=== PATIENT | male | born 1960 ===

== ENCOUNTER 2023-05-29 15:14 | Emergency (ER) | payer MEDICAID, SELFPAY ==
[2023-05-29 15:18] VITALS: BP 108/75; PULSE 91; RESP 16; O2SAT 98
--- NOTE | 2023-05-29 15:43 | ED.GENADUL_ITS ---
HPI General Date/Time Provider Initiated Documentation: 05/29/23 15:21 . HPI Narrative: 63-year-old male history of remote abdominal trauma without surgical intervention, chronic umbilical hernia, presents endorsing abdominal discomfort fullness epigastric discomfort mild nausea, endorses normal bowel movement however difficulty urinating over the last several days, feels as if his testicles are more swollen Related Data Home Medications Medication Instructions Recorded Confirmed bupropion HCl 150 mg tablet,12 hr 150 mg PO BID 05/29/23 05/29/23 sustained-release cyclobenzaprine 10 mg tablet 10 mg PO TID 05/29/23 05/29/23 gabapentin 600 mg tablet 600 mg PO TID 05/29/23 05/29/23 ibuprofen 200 mg tablet (IBU-200) 200 mg PO Q8H 05/29/23 05/29/23 levothyroxine 75 mcg tablet 75 mcg PO DAILY 05/29/23 05/29/23 (Euthyrox) loratadine 10 mg tablet 10 mg PO DAILY 05/29/23 05/29/23 (Allerclear) nicotine 14 mg/24 hr daily 1 patch transdermal DAILY 05/29/23 05/29/23 transdermal patch (Nicoderm CQ) omeprazole 20 mg capsule,delayed 20 mg PO DAILY 05/29/23 05/29/23 release sildenafil 100 mg tablet 100 mg PO DAILY PRN 05/29/23 05/29/23 tamsulosin 0.4 mg capsule 0.4 mg PO DAILY 7 days #7 caps 05/29/23 tamsulosin 0.4 mg capsule (Flomax) 0.4 mg PO DAILY 05/29/23 05/29/23 Previous Rx's Medication Instructions Recorded tamsulosin 0.4 mg capsule 0.4 mg PO DAILY 7 days #7 caps 05/29/23 Allergies Allergy/AdvReac Type Severity Reaction Status Date / Time No Known Allergies Allergy Unverified 05/29/23 15:22 General Stated Complaint: Abd Prob JOHN: 3 Review of Systems Narrative: Review of Systems Constitutional: negative Eyes: negative ENT: negative Cardiovascular: negative Respiratory: negative Gastrointestinal: Abdominal pain : Testicular fullness Musculoskeletal: negative Skin: negative Neurologic: negative Psych: negative Exam Narrative Exam Narrative: Physical Examination General: alert, awake, cooperative, resting comfortably, no acute distress HEENT: normocephalic, atraumatic; PERRL, EOM intact, conjunctiva normal; no nasal discharge; moist mucous membranes, oral and pharyngeal mucosa normal, tolerating secretions Neck: supple, trachea midline; full ROM Chest: normal to inspection Respiratory: normal respiratory effort, speaking in full sentences, clear to auscultation, no wheezing, rales or rhonchi Cardiac: regular rate, regular rhythm, S1S2 intact, no murmurs rubs or gallops GI: abdomen soft, tender in epigastrium, mildly distended, soft umbilical hernia easily reducible : Normal external genitalia, testes nontender, normal texture, normal lie normal rugae no penile discharge or rash no inguinal hernias appreciated Skin: no lesions, rashes or trauma appreciated Neuro: AAOx3, normal speech, moving all extremities Psych: Appropriate mood and affect Course Vital Signs Vital signs: Vital Signs Pulse 91 H 05/29/23 15:18 Respiratory Rate 16 05/29/23 15:18 Blood Pressure 108/75 05/29/23 15:18 Pulse Oximetry 98 05/29/23 15:18 Pulse 91 H 05/29/23 15:18 Respiratory Rate 16 05/29/23 15:18 Blood Pressure 108/75 05/29/23 15:18 Blood Pressure Position Sitting 05/29/23 15:18 Pulse Oximetry 98 05/29/23 15:18 Oxygen Delivery Method Room Air 05/29/23 15:18 Oxygen Flow Rate 0 05/29/23 15:18 Pain Level 10 05/29/23 15:18 Medical Decision Making 63-year-old male history of remote abdominal trauma, chronic umbilical hernia presents with epigastric abdominal discomfort abdominal distention mild nausea, normal bowel movements, difficulty urinating over last couple days sensation of testicular fullness and reported discoloration of penis and testicles, normal-a ppearing external genitalia without rash redness or discoloration, no penile discharge, normal nonpainful testicles with normal rugae and lie. Tender in the epigastrium with mild distention on examination, soft umbilical hernia, no evidence of inguinal hernias. Patient nontoxic well-hydrated, hemodynamically stable however given examination must consider early bowel obstruction versus internal hernia versus incarcerated local hernia versus abdominal or pelvic mass lower suspicion for UTI orchitis or epididymitis, no evidence of testicular torsion no evidence of testicular mass on examination, must also consider BPH. Screening labs imaging fluids analgesia anti-inflammatory. Close reassessment 17: 49 resting comfortably no acute distress. Able to urinate spontaneously without issue no evidence of UTI and no hematuria. Evidence of enlarged prostate on CT. Umbilical hernia without evidence of incarceration or bowel obstruction. Will start patient on Flomax and have him follow-up with urology. Home care instructions return precautions given Quality:SDOH Health Related Social Needs: No Data to Display PFSH All Active Problems (Updated 05/29/23 @ 17:50 by Hari Braun MD) Abdominal pain (Acute) Social History Smoking/Tobacco Use Status: Never Smoking risk assessment performed?: Yes Alcohol Intake: never Do you feel safe at home: Yes Do you feel safe in your relationship?: Yes Discharge Plan Disposition Patient Disposition: Home Condition: Improving Discharge Details Clinical Impression: Abdominal pain Primary Care Provider: Yoana Galdamez ED Provider: Hari Braun Home Meds and New Rx's Prescriptions: New tamsulosin 0.4 mg capsule 0.4 mg PO DAILY 7 Days Qty: 7 0RF No Action bupropion HCl 150 mg tablet sustained-release 12 hr 150 mg PO BID cyclobenzaprine 10 mg tablet 10 mg PO TID gabapentin 600 mg tablet 600 mg PO TID ibuprofen [IBU-200] 200 mg tablet 200 mg PO Q8H levothyroxine [Euthyrox] 75 mcg tablet 75 mcg PO DAILY loratadine [Allerclear] 10 mg tablet 10 mg PO DAILY nicotine [Nicoderm CQ] 14 mg/24 hr patch 24 hour 1 patch transdermal DAILY omeprazole 20 mg capsule,delayed release(DR/EC) 20 mg PO DAILY sildenafil 100 mg tablet 100 mg PO DAILY PRN Rx Instructions: administer 30 minutes to 4 hours before activity tamsulosin [Flomax] 0.4 mg capsule 0.4 mg PO DAILY Discharge Instructions Instructions: Abdominal Pain (ED) Additional Instructions: Please follow-up with urology as scheduled. Please return to the emergency department for any worsening symptoms.
[2023-05-29 15:46] LABS: Abs Immature Grans 0.03 10^3/uL (0.0-0.06); Absolute Basophil Count 0.04 10^3/uL (0.0-0.2); Absolute Eosinophil Count 0.14 10^3/uL (0.0-0.7); Absolute Lymphocyte Count 1.73 10^3/uL (1.2-3.4); Absolute Monocyte Count 0.48 10^3/uL (0.1-0.8); Absolute Neutrophil Count 4.68 10^3/uL (1.2-6.7); Basophils % 0.6; HCT 38.8 % (40.0-50.0); HGB 12.7 g/dL (13.5-17.5); Immature Grans % 0.4; Lymphocytes % 24.4; MCH 30.4 pg (27.0-33.0); MCHC 32.7 % (32.0-36.0); MCV 93 fL (80-95); MPV 8.4 fL (8.0-11.0); Monocytes % 6.8; Neutrophils % 65.8; Platelet Count 275 10^3/uL (130-400); RBC 4.18 10^6/uL (4.36-5.78); RDW 12.6 % (11.8-14.1); RDW-SD 43.1 fL
[2023-05-29] MEDS: Normal Saline 1,000 ML 1000 ML IV (15:47)
[2023-05-29] MEDS: Ketorolac 15 MG/ML VIAL IVP (15:48)
[2023-05-29] MEDS: Ondansetron 4 MG/2 ML VIAL IVP (15:48)
[2023-05-29 16:00] LABS: INR 1.1 (0.9-1.1); PTT Activated 23.3 sec (23.6-32.8); Prothrombin Time 10.6 sec (9.1-11.1)
[2023-05-29 16:01] LABS: ALT 16 U/L (16-63); AST 11 U/L (15-37); Alkaline Phosphatase 91 U/L (46-116); Anion Gap 11.9 mmol/L (3-11); BUN 30 mg/dL (7-18); Bilirubin, Total 0.3 mg/dL (0.2-1.0); CO2 27.1 mmol/L (21.0-32.0); CREATININE 1.1 mg/dL (0.70-1.30); Calcium 8.7 mg/dL (8.5-10.1); Chloride 104 mmol/L (98-107); Estimated GFR 76.37 (mL/min/1.73m2); Glucose 92 mg/dL (74-106); Potassium 3.4 mmol/L (3.5-5.1); Sodium 143 mmol/L (136-145); Total Protein 7.4 g/dL (6.4-8.2)
[2023-05-29] MEDS: Normal Saline - Diluent 50 ML VIAL IJ (16:59)
[2023-05-29] MEDS: Omnipaque 350 MG/ML 100 ML BTL IJ (17:00)
--- NOTE | 2023-05-29 17:01 | DI.CT_ITS ---
Exam(s) CT ABDOMEN PELVIS W EXAM: CT ABDOMEN PELVIS W CLINICAL HISTORY: abd pain, distension, umb hernia, urine retention. TECHNIQUE: Imaging Protocol: Axial computed tomography images with coronal and sagittal reformatted images were created and reviewed CONTRAST MATERIAL: Intravenous: Omnipaque-350 100cc Oral: None COMPARISON: No exams were available for comparison FINDINGS: VISUALIZED LUNG BASES: There is some infiltrate evident in the posterior basal segment of the right l ower lobe. Minimal increased markings same location in the left lung. No pleural effusions.. ABDOMEN: There is no ascites. LIVER: There are no focal hepatic lesions evident. No dilated intrahepatic ducts. GALLBLADDER/BILIARY: No obvious gallbladder pathology. CBD is not dilated. PANCREAS: No evidence of pancreatic mass nor dilatation of the pancreatic duct. SPLEEN: Spleen is not enlarged. No obvious intrasplenic lesions. Splenic and portal veins are paten t. ADRENALS: There are no significant adrenal masses. KIDNEYS:No cysts evident. No solid renal masses. No calculi nor hydronephrosis.. ABDOMINAL AORTA: Abdominal aorta is not enlarged. LYMPH NODES:There is no retroperitoneal nor paraaortic adenopathy. ABDOMINAL WALL: No evidence of significant anterior abdominal wall nor inguinal hernia. GI: There is a midline fat containing umbilical hernia. Does not contain bowel loops. PELVIS: GI: No evidence of appendicitis.No evidence of sigmoid diverticulitis. LYMPH NODES: There is no intrapelvic nor inguinal adenopathy. REPRODUCTIVE: Prostate size normal. There is a TURP defect in the prostatic urethra urinary bladder is not distended. No radiopaque calculi nor masses in the bladder. URINARY BLADDER: No calculi nor obvious masses evident OSSEOUS: Left hip prosthesis. No osseous lesions. Slight loss of height of superior endplates of L1, L2, L3, and L5 vertebral bodies. Appear nonacute. No listhesis. IMPRESSION: 1. There is a midline fat only containing umbilical hernia. This does not contain bowel loops and th ere is no evidence of bowel obstruction, free air, nor abscess. 2. There is mild infiltrate in the right lower lobe posterior basal segment. There is no PE. 3. Prostate TURP defect. No bladder distension. 4. Multiple nonacute compression fractures in the lumbar spine. Left hip prosthesis. Called by myself to ER physician RADIATION DOSE DELIVERED: 588.63mGy.cm Total DLP DATA REPOSITORY: All CT scans at this facility are submitted to the National Radiology Data Registry (NRDR) Dose Index Registry (DIR) with the [employer] (ACR). RADIATION OPTIMIZATION: All CT scans at this facility use at least one of these dose optimization te chniques: automated exposure control; mA and/or kV adjustment per patient size (includes targeted exa ms where dose is matched to clinical indication); or iterative reconstruction.
[2023-05-29 17:21] LABS: Bilirubin Negative (Negative); Blood Negative (Negative); Clarity Clear (Clear); Glucose Negative (Negative); Ketones Negative (Negative); Leukocyte Esterase Negative (Negative); Nitrite Negative (Negative); Urobilinogen 0.2 mg/dL (Up to 0.2)
--- NOTE | 2023-05-29 17:56 | NUR.NOTE ---
Referral faxed to [facility] for urinary retention, in 1 week. Nursing Note:
[2023-05-29 17:59] VITALS: BP 120/74; PULSE 84; RESP 16; O2SAT 96
== END 2023-05-29 18:01 | disposition home or self-care (01) ==
PROVIDERS: Emergency Provider Emergency Medicine; PCP Physician Assistant Medical
DX: R10.9 Unspecified abdominal pain (principal)
CPT/HCPCS: 36415; 80053; 96361; 96374; 96375; 99285; 74177; 81003; 85025; 85610; 85730; 99284; J1885; J2405; J3490

== ENCOUNTER 2023-05-30 14:31 | Emergency (ER) | payer MEDICAID, SELFPAY ==
[2023-05-30 14:39] VITALS: BP 117/58; PULSE 78; RESP 20; TEMP 36.8; O2SAT 98
--- NOTE | 2023-05-30 15:19 | ED.GENADUL_ITS ---
HPI General Mode of arrival: ambulatory . Date/Time Provider Initiated Documentation: 05/30/23 14:45 . Limitations to Documentation: no limitations . Information obtained by: patient . HPI Narrative: 63-year-old male with history of remote abdominal trauma, chronic umbilical hernia, here with abdominal discomfort and difficulty urinating over the last several days. Patient has been seen at 2 outside hospital emergency departments over the past week and our ED yesterday. He had diagnostic workup here yesterday including abdominal CT that revealed midline fat only containing umbilical hernia and prostate with TURP defect and no bladder distention. He was discharged yesterday advised to follow-up with urology but has not yet scheduled appointment. Patient returns with continued pain. He notes pain is improved when he is lying flat and worse upright. He has been able to urinate today. He denies rectal pain. Related Data Home Medications Medication Instructions Recorded Confirmed bupropion HCl 150 mg tablet,12 hr 150 mg PO BID 05/29/23 05/30/23 sustained-release cyclobenzaprine 10 mg tablet 10 mg PO TID 05/29/23 05/30/23 gabapentin 600 mg tablet 600 mg PO TID 05/29/23 05/30/23 ibuprofen 200 mg tablet (IBU-200) 200 mg PO Q8H 05/29/23 05/30/23 levothyroxine 75 mcg tablet 75 mcg PO DAILY 05/29/23 05/30/23 (Euthyrox) loratadine 10 mg tablet 10 mg PO DAILY 05/29/23 05/30/23 (Allerclear) nicotine 14 mg/24 hr daily 1 patch transdermal DAILY 05/29/23 05/30/23 transdermal patch (Nicoderm CQ) omeprazole 20 mg capsule,delayed 20 mg PO DAILY 05/29/23 05/30/23 release sildenafil 100 mg tablet 100 mg PO DAILY PRN 05/29/23 05/30/23 tamsulosin 0.4 mg capsule 0.4 mg PO DAILY 7 days #7 caps 05/29/23 05/30/23 tamsulosin 0.4 mg capsule (Flomax) 0.4 mg PO DAILY 05/29/23 05/30/23 Previous Rx's Medication Instructions Recorded tamsulosin 0.4 mg capsule 0.4 mg PO DAILY 7 days #7 caps 05/29/23 Allergies Allergy/AdvReac Type Severity Reaction Status Date / Time No Known Allergies Allergy Unverified 05/30/23 14:45 General Stated Complaint: Abd Prob JOHN: 3 Exam Const General: cooperative and no acute distress HENMT Mouth: moist mucous membranes Eyes Conjunctivae: normal conjunctivae Sclera: normal sclerae Neck Neck: supple Resp Auscultation: clear to auscultation bilaterally, no rales, no rhonchi and no wheezes Cardio Rate: regular rate and not tachycardic Rhythm: regular rhythm GI Inspection: no abdominal wall ecchymosis Palpation: soft, not firm, guarding in the RLQ and in the LUQ, no masses, not rigid and tender in the epigastrum, in the LLQ and in the RLQ Skin General skin exam: no rashes or lesions noted Neuro General: patient alert, patient awake and tone normal Extrem General: no edema Psych Appearance: grossly normal Mental Status: mental status grossly normal Course Vital Signs Vital signs: Vital Signs Temperature 36.8 C 05/30/23 14:39 Pulse 78 05/30/23 14:39 Respiratory Rate 20 05/30/23 14:39 Blood Pressure 117/58 L 05/30/23 14:39 Pulse Oximetry 98 05/30/23 14:39 Temperature 36.8 C 05/30/23 14:39 Pulse 78 05/30/23 14:39 Respiratory Rate 20 05/30/23 14:39 Respiratory Effort Normal 05/30/23 14:50 Blood Pressure 117/58 L 05/30/23 14:39 Pulse Oximetry 98 05/30/23 14:39 Oxygen Delivery Method Room Air 05/30/23 14:39 Oxygen Flow Rate 0 05/30/23 14:39 Pain Level 10 05/30/23 14:39 Medical Decision Making 1535 -- 63-year-old male history of remote abdominal trauma, chronic umbilical hernia presents with epigastric abdominal discomfort abdominal distention mild nausea, normal bowel movements, difficulty urinating over last couple days sensation of testicular fullness. Patient was seen here in the emergency room yesterday with same presentation had CT imaging, diagnostic labs and urinalysis performed. There was concern for evidence of enlarged prostate on CT patient was started on Flomax and there was plan to have him follow-up with urology. He returns today with persistent discomfort. Patient has abdominal tenderness with guarding. Soft umbilical hernia without signs of incarceration. General exam reveals tender bilateral testicles with no other inflammatory changes. No discoloration or penile discharge. Normal testicular lie. Patient was seen here in the emergency room yesterday with same presentation had CT imaging, diagnostic labs and urinalysis performed. There was concern for evidence of enlarged prostate on CT patient was started on Flomax and there was plan to have him follow-up with urology. He returns today with persistent discomfort. Postvoid bladder scan performed and 0 residual. Plan to obtain testicular ultrasound. -- Testicular ultrasound was interpreted by Dr. Rangel: Small hydrocele and spermatocele. 1950 --CT of the abdomen pelvis was interpreted by radiology: Normal CT Angiogram of the Abdomen. No acute abnormality is seen in the abdomen or pelvis. Labs reviewed and nondiagnostic. Urinalysis nondiagnostic. Patient has remained stable. All results were discussed with the patient. Plan for discharge with close outpatient follow-up. Disposition decision was made weighing the risks and benefits of hospitalization versus outpatient treatment, the risk for further decompensation, and the patient's wishes. The patient was stable and requested discharge. Prior to discharge, my usual and customary return precautions were reviewed with the patient - this included follow-up instructions and reason to return to the emergency department if condition worsens, does not improve as expected, or other new concerns arise. Lab Data Lab results reviewed: Yes I reviewed the patient's lab results. Labs: Laboratory Tests Range/Units 05/30/23 05/30/23 05/30/23 15:06 15:25 15:45 WBC (4.4-10.8) 10^3/uL 6.41 RBC (4.36-5.78) 10^6/uL 3.84 L Hgb (13.5-17.5) g/dL 11.8 L Hct (40.0-50.0) % 35.3 L MCV (80-95) fL 92 MCH (27.0-33.0) pg 30.7 MCHC (32.0-36.0) % 33.4 RDW (11.8-14.1) % 12.6 Plt Count (130-400) 10^3/uL 263 MPV (8.0-11.0) fL 9.0 Immature Gran % 0.2 Neutrophils % 67.1 Lymphocytes % 24.0 Monocytes % 6.2 Eosinophils % 2.0 Basophils % 0.5 Nucleated RBC % (0.0-0.3) % 0.0 Absolute Neutrophils (1.2-6.7) 10^3/uL 4.30 Absolute Lymphocytes (1.2-3.4) 10^3/uL 1.54 Absolute Monocytes (0.1-0.8) 10^3/uL 0.40 Absolute Eosinophils (0.0-0.7) 10^3/uL 0.13 Absolute Basophils (0.0-0.2) 10^3/uL 0.03 VBG Lactate (0.6-1.4) mmol/L 0.6 Sodium (136-145) mmol/L 142 Potassium (3.5-5.1) mmol/L 3.4 L Chloride (98-107) mmol/L 106 Carbon Dioxide (21.0-32.0) mmol/L 26.5 Anion Gap (3-11) mmol/L 9.5 BUN (7-18) mg/dL 19 H Creatinine (0.70-1.30) mg/dL 0.9 Est GFR (CKD-EPI 2020) (mL/min/1.73m2) 97.17 Glucose (74-106) mg/dL 78 Calcium (8.5-10.1) mg/dL 8.3 L Total Bilirubin (0.2-1.0) mg/dL 0.3 AST (15-37) U/L 10 L ALT (16-63) U/L 14 L Alkaline Phosphatase (46-116) U/L 82 Total Protein (6.4-8.2) g/dL 6.6 Albumin (3.4-5.0) g/dL 3.6 Lipase (16-77) U/L 14 L Urine Color (Yellow) Yellow Urine Clarity (Clear) Clear Urine pH (5-8) 7.0 Ur Specific [place] (1.005-1.025) 1.020 Urine Protein (Negative) mg/dL Negative Urine Ketones (Negative) mg/dL Negative Urine Blood (Negative) Negative Urine Nitrite (Negative) Negative Urine Bilirubin (Negative) Negative Urine Urobilinogen (Up to 0.2) mg/dL 0.2 Ur Leukocyte Esterase (Negative) Negative Urine Glucose (Negative) mg/dL Negative Quality:SDOH Health Related Social Needs: No Data to Display PFSH All Active Problems (Updated 02/09/24 @ 19:55 by Ezekiel Curry MD) Abdominal pain (Acute) Abdominal pain (Acute) Social History Smoking/Tobacco Use Status: Current every day Tobacco Type: cigarettes Smoking risk assessment performed?: Yes Alcohol Intake: never Drug use: Socially Substance use type: marijuana Do you feel safe at home: Yes Do you feel safe in your relationship?: Yes Discharge Plan Disposition Patient Disposition: Home Condition: Stable Discharge Details Clinical Impression: Abdominal pain Primary Care Provider: Yoana Galdamez ED Provider: Ezekiel Curry Home Meds and New Rx's Prescriptions: Continued bupropion HCl 150 mg tablet sustained-release 12 hr 150 mg PO BID cyclobenzaprine 10 mg tablet 10 mg PO TID gabapentin 600 mg tablet 600 mg PO TID ibuprofen [IBU-200] 200 mg tablet 200 mg PO Q8H levothyroxine [Euthyrox] 75 mcg tablet 75 mcg PO DAILY loratadine [Allerclear] 10 mg tablet 10 mg PO DAILY nicotine [Nicoderm CQ] 14 mg/24 hr patch 24 hour 1 patch transdermal DAILY omeprazole 20 mg capsule,delayed release(DR/EC) 20 mg PO DAILY sildenafil 100 mg tablet 100 mg PO DAILY PRN Rx Instructions: administer 30 minutes to 4 hours before activity tamsulosin [Flomax] 0.4 mg capsule 0.4 mg PO DAILY tamsulosin 0.4 mg capsule 0.4 mg PO DAILY 7 Days Qty: 7 0RF Discharge Instructions Instructions: Abdominal Pain (ED) Additional Instructions: Please contact your primary care physician to arrange follow-up. Your hemoglobin level has decreased from 12.7-11.8. Labs should be rechecked next week. Please discuss this with your doctor on Friday morning. Please follow-up with gastroenterology or general surgery for further diagnostic workup including consideration for colonoscopy. Return to the ER immediately for any worsening or new concerning symptoms. Referrals: [facility] [Provider Group] Yoana Galdamez [Primary Care Provider] -
--- NOTE | 2023-05-30 15:30 | DI.US_ITS ---
Exam(s) US SCROTUM EXAM: US SCROTUM CLINICAL HISTORY: testicular pain and swelling TECHNIQUE: Ultrasound of the testes performed using grayscale, color, and Doppler imaging. COMPARISON: No exams were available for comparison FINDINGS: RIGHT HEMISCROTUM: The right testicle exhibits normal size and echo architecture with no evidence of intratesticular mas s. Vascular flow was demonstrated within the right testicle, including arterial waveforms. The epididymis appears unremarkable. There are no epididymal head cysts. Small hydrocele. No obvious varicocele. LEFT HEMISCROTUM: The left testicle exhibits normal size and echo architecture with no evidence of intratesticular mass . Vascular flow is demonstrated within the left testicle, including arterial waveforms. There is a 4 x 4 mm spermatocele Small hydrocele. No obvious varicocele. IMPRESSION: 1. No evidence of testicular mass nor testicular torsion. 2. Small bilateral hydroceles. 3. Small 4 millimeter epididymal cyst left side Called by myself to physician DATA REPOSITORY:
[2023-05-30 15:33] LABS: Bilirubin Negative (Negative); Blood Negative (Negative); Clarity Clear (Clear); Glucose Negative (Negative); Ketones Negative (Negative); Leukocyte Esterase Negative (Negative); Nitrite Negative (Negative); Urobilinogen 0.2 mg/dL (Up to 0.2)
[2023-05-30 15:49] LABS: Lactate 0.6 mmol/L (0.6-1.4)
[2023-05-30 15:57] LABS: Abs Immature Grans 0.01 10^3/uL (0.0-0.06); Absolute Basophil Count 0.03 10^3/uL (0.0-0.2); Absolute Eosinophil Count 0.13 10^3/uL (0.0-0.7); Absolute Lymphocyte Count 1.54 10^3/uL (1.2-3.4); Basophils % 0.5; HCT 35.3 % (40.0-50.0); HGB 11.8 g/dL (13.5-17.5); Immature Grans % 0.2; MCH 30.7 pg (27.0-33.0); MCHC 33.4 % (32.0-36.0); MCV 92 fL (80-95); Monocytes % 6.2; Neutrophils % 67.1; Platelet Count 263 10^3/uL (130-400); RBC 3.84 10^6/uL (4.36-5.78); RDW 12.6 % (11.8-14.1); WBC 6.41 10^3/uL (4.4-10.8)
[2023-05-30 16:16] LABS: ALT 14 U/L (16-63); AST 10 U/L (15-37); Albumin 3.6 g/dL (3.4-5.0); Alkaline Phosphatase 82 U/L (46-116); Anion Gap 9.5 mmol/L (3-11); BUN 19 mg/dL (7-18); Bilirubin, Total 0.3 mg/dL (0.2-1.0); CO2 26.5 mmol/L (21.0-32.0); CREATININE 0.9 mg/dL (0.70-1.30); Calcium 8.3 mg/dL (8.5-10.1); Chloride 106 mmol/L (98-107); Estimated GFR 97.17 (mL/min/1.73m2); Glucose 78 mg/dL (74-106); Lipase 14 U/L (16-77); Potassium 3.4 mmol/L (3.5-5.1); Sodium 142 mmol/L (136-145); Total Protein 6.6 g/dL (6.4-8.2)
--- NOTE | 2023-05-30 17:54 | DI.CT_ITS ---
Exam(s) CT ABDOMEN PELVIS CTA EXAM: CT ABDOMEN PELVIS CTA CLINICAL HISTORY: abdominal pain, distension. TECHNIQUE: Imaging Protocol: Axial CT angiography was performed with multi-slice acquisition and m ulti-planar and/or 3D reconstructions. CONTRAST MATERIAL: Intravenous: Omnipaque 350 Contrast volume:structured data in ml Oral: / no COMPARISON: CT CT ABDOMEN PELVIS W from 05/29/2023 FINDINGS: Vascular Structures: Minimal atherosclerotic change. No evidence of dissection or occlusion.. Celiac [place]:No evidence of stenosis. SMA: No evidence of stenosis. Renal Arteries: No evidence of stenosis. There is a single renal artery perfusing each kidney. Aorta: No aneurysm. No dissection. No significant stenosis. Iliac Arteries: No evidence of stenosis. Common Femoral Arteries: No evidence of stenosis. Soft Tissues:Fatty containing umbilical hernia again noted. Lung bases:Posterior atelectasis. Liver: Normal size. Normal density. No measurable mass. Gallbladder and biliary tract: No evidence of calculi. No gallbladder wall thickening. No biliary di lation. Pancreas: Normal density, no abnormal calcifications or inflammatory process. Spleen: Normal. Kidneys: Normal size, contour and axis. No obstructive uropathy. No masses seen. No evidence of calcu li. Adrenal glands: No masses seen. Bladder: No gross wall thickening. No evidence of calculi. No evidence of mass. Bowel: No obstruction or bowel wall thickening. Appendix normal. Normal quantity of stool Peritoneal cavity: No ascites. No focal collection. No mesenteric inflammatory response. Bones: Left hip prosthesis. Fluid collection seen anterior to hip. Old mild lumbar compression frac tures. Lymph nodes: Within normal limits. Reproductive: TURP defect in prostate. IMPRESSION: Normal CT Angiogram of the Abdomen. No acute abnormality is seen in the abdomen or pelvis. RADIATION DOSE DELIVERED: 522.96mGy.cm Total DLP DATA REPOSITORY: All CT scans at this facility are submitted to the National Radiology Data Registry (NRDR) Dose Index Registry (DIR) with the [employer] (ACR). RADIATION OPTIMIZATION: All CT scans at this facility use at least one of these dose optimization te chniques: automated exposure control; mA and/or kV adjustment per patient size (includes targeted exa ms where dose is matched to clinical indication); or iterative reconstruction.
[2023-05-30] MEDS: Normal Saline - Diluent 50 ML VIAL IJ (17:55)
[2023-05-30] MEDS: Omnipaque 350 MG/ML 100 ML BTL IJ (17:56)
[2023-05-30 19:40] VITALS: BP 120/70; PULSE 62; RESP 16; O2SAT 97
[2023-05-30 20:05] VITALS: BP 124/74; PULSE 65; RESP 16; O2SAT 97
--- NOTE | 2023-05-30 20:17 | NUR.NOTE ---
Referral faxed to [facility] to f/u in a couple of weeks for abd pain, colonoscopy. Copy to Care Management to referr to patient pcp Yoana Galdamez ([facility]) to f/u early week of 06/02/23 for abd pain. Patient was referred to Urology 05/29/23 by [facility] Emergency Dept.Nursing Note:
== END 2023-05-30 20:08 | disposition home or self-care (01) ==
PROVIDERS: Emergency Provider Student in an Organized Health Care Education/Training Program; PCP Physician Assistant Medical
DX: R10.13 Epigastric pain (principal); N43.3 Hydrocele, unspecified; N50.3 Cyst of epididymis; F17.210 Nicotine dependence, cigarettes, uncomplicated
CPT/HCPCS: 80053; 83690; 99285; 74174; 76870; 81003; 83605; 85025; 99284; J3490

== ENCOUNTER 2024-04-01 03:36 | Outpatient (CLI) | payer MEDICAID, SELFPAY ==
[2024-04-01] MEDS: Levalbuterol HFA 15 GM INH 4 PUFF IH (14:13)
[2024-04-01] MEDS: Inhaler, Assist Device 1 EACH MC (14:13)
--- NOTE | 2024-04-03 12:18 | W.PFT ---
Date of service: 04/01/24 Time of Service: 13:01 Pulmonary Function Test Result Indications: COPD Interpretation Spirometry: Moderate airflow limitation. No bronchodilator response Lung Volumes: There is air trapping Diffusion Capacity: Reduced diffusion Airway Pressure: Normal airways resistance Impression Moderate airflow obstruction with air trapping and a reduced diffusion Clinical Correlation therefore is recommended.
== END 2024-04-01 03:37 | disposition home or self-care (01) ==
LOC: RT 03:36
PROVIDERS: PCP Family Medicine; Visit Provider Physician Assistant Surgical
DX: J44.9 Chronic obstructive pulmonary disease, unspecified (principal)
CPT/HCPCS: 94060; 94726; 94729